=== PATIENT | male | born 1960 | race Caucasian/White ===

== ENCOUNTER → 2022-01-06 09:40 | Outpatient (CLI) | payer OTHER, SELFPAY ==
--- NOTE | ~2022-01-06 | CT_ITS ---
EXAMINATION: CT abdomen pelvis wo con DATE: 01/06/2022 09:59 INDICATION: Unspecified abdominal pain TECHNIQUE: Computed tomography (CT) of the abdomen and pelvis was performed without intravenous contr ast. The dose-length product (DLP) was 1150.95 mGy-cm. Automated exposure control and iterative recon struction technique were employed. COMPARISON: None FINDINGS: There are a few patchy opacities of the right lower lobe, likely infectious or inflammatory . The heart size is normal. A 1.7 cm area subcutaneous fluid attenuation in the mid back to the left of midline likely represents a sebaceous cyst. The liver, spleen, pancreas, gallbladder, and adrenal glands are normal. The kidneys are unremarkable. There is a mildly enlarged left external iliac chain lymph node measuring 1.3 cm in short axis. Colonic diverticulosis is present without evidence of div erticulitis. There is no free intraperitoneal gas or evidence of bowel obstruction. There are bilater al inguinal hernias containing fat. There is severe lumbar spondylosis at L5-S1. IMPRESSION: 1. No CT correlate for the patient's symptoms. 2. Left pelvic lymphadenopathy of unclear significance. Finding could be reactive versus metastatic d isease. 3. Bilateral inguinal hernias containing fat. Reviewed, dictated and finalized at location B. IMPRESSION: 1. No CT correlate for the patient's symptoms. 2. Left pelvic lymphadenopathy of unclear significance. Finding could be reacti ve versus metastatic disease. 3. Bilateral inguinal hernias containing fat.
== END ==
PROVIDERS: PCP Family Medicine; Visit Provider Physician Assistant
DX: R10.9 Unspecified abdominal pain (principal); R59.0 Localized enlarged lymph nodes; K40.20 Bilateral inguinal hernia, without obstruction or gangrene, not specified as recurrent
CPT/HCPCS: 74176

== ENCOUNTER → 2022-04-17 13:46 | Outpatient (CLI) | payer OTHER, SELFPAY ==
--- NOTE | ~2022-04-17 | CT_ITS ---
CT Abdomen and Pelvis with contrast. History: Right flank pain. Spiral CT of the abdomen and pelvis was performed after the administration of intravenous contrast. 1 00 cc of Omnipaque 350 was administered intravenously without complication. Dose reduction technique was used on this scan by utilizing automated exposure control and iterative reconstruction technique. The dose-length product (DLP) was 1173.76 mGy-cm. COMPARISON: 01/06/2022 Findings: Scans through the lung bases demonstrate mild atelectatic change. The liver, spleen, pancreas, gallbladder, adrenals and kidneys are within normal limits. No evidence of aortic aneurysm. There is no evidence of bowel obstruction. There is no evidence to suggest acute appendicitis or dive rticulitis. Shotty central mesenteric nodes are present with minimal haziness, which is improved from prior exam. Images through the pelvis were performed. Urinary bladder unremarkable. Prostate gland and seminal ve sicles are unremarkable. Stable minimally prominent lymph nodes along the right external iliac chain, nonspecific. No ascites is seen. Impression: Findings suggestive of possible minimal mesenteric panniculitis, which is improved as compared to [place] or exam. Minimally prominent left external iliac chain lymph node is unchanged, nonspecific. Reviewed, dictated and finalized at location . [employer] Impression: Findings suggestive of possible minimal mesenteric panniculitis, which is impro karen as compared to prior exam. Minimally prominent left external iliac chain lymph node is unchanged, nonspeci fic.
[2022-04-17 14:08] LABS: Estimated Glomerular Filt Rate > 60
== END ==
PROVIDERS: PCP Family Medicine; Visit Provider Physician Assistant
DX: R10.9 Unspecified abdominal pain (principal)
CPT/HCPCS: 74177; Q9967

== ENCOUNTER 2023-11-06 12:32 | Outpatient (CLI) | payer BC, SELFPAY ==
--- NOTE | ~2023-11-06 | PE_ITS ---
EXAMINATION: PET_PETPSMAST_PT DATE: 11/06/2023 15:27 INDICATION: Prostate cancer TECHNIQUE: 3.01 mCi of Locametz Ga-[id number]) was administered i.v. Low dose computed ricardo graphy (CT) images were acquired from the base of the brain to the base of the brain to the proximal thighs for attenuation correction and anatomic localization. Positron emission tomography (PET) image s were acquired in the same distribution beginning 90 minutes after injection. Images including fused PET/CT images were reconstructed in axial, coronal, and sagittal planes. Automated exposure control technique was employed. The dose-length product was 1344.39mGy-cm. COMPARISON: CT abdomen pelvis dated 04/17/2022 FINDINGS: Head/neck: Typical pattern of symmetric physiologic increased activity in the lacrimal, parotid and submandibula r glands as well as along the mucosa of the nasal and oral cavities, pharynx and hypopharynx. No path ologically enlarged cervical lymphadenopathy or suspicious foci of increased uptake in the visualized head or neck. Chest: 3-4 mm nodule without evident PSMA uptake at the superior segment of the right lower lobe. No other s uspicious pulmonary nodules, pneumonia or pleural effusion. Heart size is normal. No pericardial effu myla. Thoracic aorta is normal in caliber. No pathologically enlarged or PSMA avid thoracic lymphaden opathy. Abdomen/pelvis/proximal thighs: Physiologic renal accumulation and excretion of activity in the kidneys, bladder and along portions o f ureters. There is a diffuse heterogeneous pattern of increased uptake at the prostate most prominen t posterior inferiorly slightly to the left of midline with maximal SUV of 16.2 consistent with prima ry prostate cancer. Normal degree and slightly heterogenous pattern of increased uptake throughout th e liver and spleen without radiologic correlate or dominant PSMA avid lesion. The gallbladder, pancre as and bilateral adrenal glands are normal. Moderate uptake scattered throughout the bowels with typi shireen duodenal and proximal jejunal predominance and without radiologic correlate, also likely physiolo gic. No interval change since 2021 in a 1.5 cm likely benign subdermal nodule slightly to the right o f the umbilicus which is without PSMA activity. 1.5 x 1.0 cm PSMA avid right external iliac chain lym ph node with maximal SUV of 13.2. Less intense mild PSMA uptake at an 11 x 7 mm left obturator lymph node with maximal SUV of 5.4 end of a 6 mm right internal iliac lymph node with maximal SUV of 4.0. N o other abnormal foci of increased soft tissue uptake or pathologically enlarged lymphadenopathy in t he abdomen, pelvis or proximal thighs. Musculoskeletal: Possible 1.5 cm sclerotic lesion at the posterior aspect of the L3 vertebral body with maximal SUV of 20.8. IMPRESSION: 1. Heterogeneous increased uptake throughout the prostate with prominent posterior inferiorly consist ent with primary prostate cancer. 2. A few scattered likely metastatic PSMA avid lesions including 3 still relatively small pelvic lymp h nodes and a sclerotic lesion at L3 as detailed above. Reviewed, dictated and finalized at location A. IMPRESSION: 1. Heterogeneous increased uptake throughout the prostate with prominent tool maker bench ior inferiorly consistent with primary prostate cancer. 2. A few scattered likely metastatic PSMA avid lesions including 3 still relati vely small pelvic lymph nodes and a sclerotic lesion at L3 as detailed above.
== END 2023-11-06 12:33 | disposition home or self-care (01) ==
PROVIDERS: PCP Family Medicine; Visit Provider Urology
DX: C61 Malignant neoplasm of prostate (principal)
CPT/HCPCS: 78815; A9596